=== PATIENT | female | born 1990 | race Caucasian/White ===

== ENCOUNTER → 2018-05-21 08:13 | Outpatient (CLI) | payer MEDICAID ==
[~2018-05-21 08:13] MED LIST: PRENATAL COMPLE1 TAB PO
[2018-05-26 10:15] VITALS: BMI 28.6
== END | disposition home or self-care (01) ==
LOC: D.LDO 08:13
DX: O48.0 Post-term pregnancy (principal); Z3A.40 40 weeks gestation of pregnancy

== ENCOUNTER → 2018-05-25 15:15 | Outpatient (CLI) | payer MEDICAID ==
[2018-05-26 10:15] VITALS: BMI 28.6
== END | disposition home or self-care (01) ==
LOC: D.LDO 15:15
DX: O48.0 Post-term pregnancy (principal); Z3A.40 40 weeks gestation of pregnancy

== ENCOUNTER 2018-05-26 05:07 | Inpatient (IN) | payer MEDICAID ==
[2018-05-26] VITALS (11 sets, daily range): BP systolic 96–128; BP diastolic 51–73; Ht 156.2 cm; Wt 69.9 kg
[~2018-05-26] VITALS: Ht 156.2 cm; Wt 69.9 kg
--- NOTE | ~2018-05-26 | OP ---
PATIENT NAME: MCKENZIE MATSON MEDICAL RECORD: [id number] :89 [id number] ADMISSION DATE:05/26/18 SURGEON: RUEL ROWE MD DATE OF OPERATION: 05/26/2018 PREOPERATIVE DIAGNOSES: 1. Term intrauterine . 2. Induction of labor. 3. intolerance to labor. POSTOPERATIVE DIAGNOSES: 1. Term intrauterine . 2. Induction of labor. 3. intolerance to labor. PROCEDURE: Primary low transverse section. SURGEON: Ruel Rowe MD ESTIMATED BLOOD LOSS: 1000 cc. ANESTHESIA: Regional via spinal. FINDINGS: 1. Viable male , Apgars 9 at 1 and 9 at 5. 2. Placenta delivered manually intact, 3-vessel cord noted. 3. Grossly normal adnexa noted bilaterally. SPECIMENS: Placenta and cord for gases. INTRAVENOUS FLUIDS: Per anesthesia record. ESTIMATED BLOOD LOSS: 1000 cc. COMPLICATIONS: None apparent. DESCRIPTION OF THE PROCEDURE: The patient was taken to the operating room where regional anesthesia was achieved without difficulty. The patient had been prepped and draped in normal sterile fashion in the dorsal supine position. SCDs were on and functioning appropriately. Ahumada catheter had been placed and was draining freely. At this point, a Pfannenstiel skin incision was made, extended downward to the underlying subcutaneous fat to level of the fascia. The fascia was then excised in the midline and extended bilaterally using the Prince scissors. The superior and inferior aspect of the fascial incision were then tented upward and sharply dissected from the underlying rectus muscle using the Bovie cautery and the Prince scissors. Rectus muscles were then bluntly in midline, peritoneum identified, and entered at the superior aspect of the incision using the Metzenbaum scissors. Peritoneal incision was then extended using the Metzenbaum scissors and a bladder blade placed into the pelvis. At this point, a bladder flap was created by excising the anterior leaf of the broad ligament across the lower uterine segment. The bladder blade was placed and a low transverse incision was made and extended using the Pelosi method. 's head was delivered atraumatically followed by the body. Infant was bulb suctioned upon delivery. OPERATIVE REPORT [id number] MCKENZIE MATSON Cord was clamped times 2, cut, and the infant was handed to awaiting nursery team. Cord was obtained for gases and the placenta was removed manually intact, 3-vessel cord was noted. At this point, the uterus exteriorized, cleared of all clots and debris and vigorously massaged. A good uterine tone was noted. Uterine incision was repaired with 0 Vicryl in a running locked fashion times 2. The posterior cul-de-sac was then thoroughly irrigated and the uterus was replaced into the pelvis. Good hemostasis was again noted in the anterior cul-de-sac at the uterine incision. Counts were correct times 2 for laps, instruments, and needles. Fascia was repaired with 0 loop PDS and the skin repaired with andrew. The patient tolerated procedure well and was transferred to postanesthesia recovery stable without incident. TRANSINT:[id number] Voice Confirmation ID: [id number] DOCUMENT ID: [id number] RUEL ROWE MD at 1304 CC: [id number] DICTATION DATE: 06/27/18 0640 INTERNATIONAL TAX MANAGER: 06/27/18 0956 DIS IN 05/28/18 [facility] [address] [place] [address]
--- NOTE | ~2018-05-26 | DS ---
PATIENT:MCKENZIE MATSON :89 MEDICAL RECORD: [id number] DISCHARGE SUMMARY ADMISSION DATE: 05/26/18 DISCHARGE DATE: 05/28/18 HOSPITAL COURSE: The patient was admitted on 05/26/2018. A 27-year-old at 40 weeks and 5 days, admitted for induction of labor. The patient was noted to be O positive, group B strep unknown, rubella immune. PAST MEDICAL HISTORY: Significant for being a smoker and depression. PAST SURGICAL HISTORY: The patient denies any past surgical history. ALLERGIES: THE PATIENT REPORTS ALLERGY TO PENICILLIN. MEDICATIONS: Included vitamin. FAMILY HISTORY: The patient reported a family history significant for a parent with cancer and a sibling with cardiovascular disease. SOCIAL HISTORY: The patient reported social history negative times 3. PHYSICAL EXAMINATION: VITAL SIGNS: On initial assessment, vital signs were stable. The patient was afebrile and normotensive. LUNGS: Clear to auscultation. CARDIOVASCULAR: Regular rate and rhythm. PELVIC: Uterus was appropriately sized and nontender. EXTREMITIES: Lower extremities were free of erythema, swelling or Homans sign. wellbeing was reassuring with a category 1 tracing at admission. LABORATORY DATA: Admit hemoglobin was found to be 11.5 with a platelet count of 151. ASSESSMENT AND PLAN AT ADMISSION: 1. Term intrauterine at 40 weeks and 5 days. 2. Induction of labor. 3. Group B strep unknown. 4. History of ultrasound with echogenic intracardiac focus. During the induction of labor with Pitocin, the fetus was having recurrent late decelerations. I discussed with the patient the physiology of uteroplacental insufficiency. The patient agreed to proceed with section. Operative report is as dictated. The patient did well overnight on postop day #0, tolerating clear liquids. The patient with a Dilaudid MALLET AND DIE CUTTER and IV Toradol for pain. Lower extremities were free of Homans sign. SCDs are on and functioning appropriately. The patient had a Ahumada catheter overnight, which was draining freely with adequate urine output. The patient did well on the morning of postop day #1, vital signs remained stable. The patient was afebrile. Hemoglobin was found to be stable. Uterus was infraumbilical and appropriately tender. Incision was clean, dry and intact. At that time, the patient was advanced to general diet and p.o. pain meds, ambulation and Ahumada was discontinued. The patient continued to do well overnight on postop day #1. On the morning of postop day #2, the patient remained afebrile and normotensive. Hemoglobin was stable. Uterus was infraumbilical and appropriately tender. The DISCHARGE SUMMARY REPORT [id number] MCKENZIE MATSON patient was tolerating general diet and p.o. pain meds. The patient was given instructions to follow up for staple removal the following week. TRANSINT:[id number] Voice Confirmation ID: [id number] DOCUMENT ID: [id number] JORDAN MATHEWS MD at 1304 CC: [id number] DICTATION DATE: 06/27/18 0643 STRAIGHT TRUCK DRIVER: 06/27/18 1645 DIS IN 05/28/18 [facility] [id number] [place] [address]
[2018-05-26] MEDS ORDERED: PRENATAL COMPLE1 TAB PO (05:43)
[2018-05-26 05:54] LABS: HEMATOCRIT 33.7 % (36.0-48.0); HEMOGLOBIN 11.5 g/dL (12-16); MCHC 34.1 g/dL (31.0-37.0); MCV 96.6 fL (80.0-100.0); MEAN PLATELET VOLUME 12.4 fL (7.4-10.4); RBC 3.49 10x6/uL (4.00-5.40); WBC 10.9 10x3/uL (4.8-10.8)
[2018-05-26 07:03] LABS: APPEARANCE HAZY (CLEAR); BILIRUBIN NEGATIVE (NEGATIVE); COLOR YELLOW (YELLOW); GLUCOSE NEGATIVE (NEGATIVE); KETONE NEGATIVE (NEGATIVE); NITRITE NEGATIVE (NEGATIVE); PROTEIN NEGATIVE (NEGATIVE); UROBILINOGEN NORMAL (NORMAL)
[2018-05-26 07:05] LABS: BACTERIA MODERATE /hpf (NONE SEEN); EPITHELIAL CELLS 0-5 /hpf (0-5)
[2018-05-26 07:06] LABS: MUCUS <1+ /lpf (NONE SEEN); RED CELLS - URINE 0-5 /hpf (0-5)
[2018-05-26 17:36] LABS: BASOPHILS 0.1 % (0-2); EOSINOPHILS 0.5 % (0-7); HEMATOCRIT 29.3 % (36.0-48.0); HEMOGLOBIN 9.9 g/dL (12-16); IMMATURE GRANULOCYTES 1.6 % (0-5); LYMPHOCYTES 11.3 % (15-50); MCHC 33.8 g/dL (31.0-37.0); MCV 97.7 fL (80.0-100.0); MONOCYTES 7.9 % (2-11); NEUTROPHILS 78.6 % (40-80); PLATELET COUNT 134 10x3/uL (130-400)
[2018-05-26 18:18] LABS: WBC 14.1 10x3/uL (4.8-10.8)
[2018-05-27 03:51] VITALS: BP 108/66
[2018-05-27 06:15] LABS: RAPID PLASMA REAGIN Non Reactive (Non Reactive)
[2018-05-27 06:44] LABS: BASOPHILS 0.1 % (0-2); EOSINOPHILS 1.6 % (0-7); HEMOGLOBIN 9.8 g/dL (12-16); IMMATURE GRANULOCYTES 1.5 % (0-5); LYMPHOCYTES 14.2 % (15-50); MCH 32.8 pg (26.0-34.0); MCHC 33.8 g/dL (31.0-37.0); MEAN PLATELET VOLUME 11.7 fL (7.4-10.4); MONOCYTES 7.3 % (2-11); NEUTROPHILS 75.3 % (40-80); PLATELET COUNT 115 10x3/uL (130-400); RBC 2.99 10x6/uL (4.00-5.40); RDW 13.1 % (11.5-14.5)
[2018-05-27 06:50] LABS: WBC 9.9 10x3/uL (4.8-10.8)
[2018-05-27 07:22] VITALS: BP 108/61
[2018-05-27 13:22] VITALS: BP 100/52
[2018-05-27 21:53] VITALS: BP 130/63
[2018-05-28 07:31] VITALS: BP 120/67
== END 2018-05-28 12:32 | disposition home or self-care (01) | DRG 766 ==
LOC: D.LD 05:07
PROVIDERS: Obstetrics & Gynecology
PROC: 10D00Z1 Extraction of Products of Conception, Low, Open Approach (ICD-10-PCS; principal; 2018-05-26 10:30)
DX: O99.334 Smoking (tobacco) complicating childbirth (principal); Z3A.40 40 weeks gestation of pregnancy; Z37.0 Single live birth; O76 Abnormality in fetal heart rate and rhythm complicating labor and delivery; O35.8XX0 Maternal care for other (suspected) fetal abnormality and damage, not applicable or unspecified

== ENCOUNTER → 2019-12-15 12:03 | Outpatient (CLI) | payer MEDICAID ==
[2018-05-26 10:15] VITALS: BMI 28.6
[2019-12-15 12:44] LABS: BASOPHILS 0.3 % (0-2); HEMATOCRIT 28.9 % (36.0-48.0); HEMOGLOBIN 9.3 g/dL (12-16); IMMATURE GRANULOCYTES 5.1 % (0-5); MCH 30.1 pg (26.0-34.0); MCHC 32.2 g/dL (31.0-37.0); MCV 93.5 fL (80.0-100.0); MEAN PLATELET VOLUME 11.6 fL (7.4-10.4); MONOCYTES 7.4 % (2-11); NEUTROPHILS 70.2 % (40-80); RBC 3.09 10x6/uL (4.00-5.40); RDW 13.4 % (11.5-14.5); WBC 9.2 10x3/uL (4.8-10.8)
[2019-12-15 12:48] LABS: PLATELET COUNT 156 10x3/uL (130-400)
[2019-12-15 12:52] LABS: CALC OSMOLALITY 272 mosm/kg (275-300); CALCIUM 7.6 mg/dL (8.5-10.1); CARBON DIOXIDE 22.9 mmol/L (21.0-32.0); CHLORIDE - SERUM 107 mmol/L (98-107); CREATININE - SERUM 0.6 mg/dL (0.6-1.3); GLUCOSE 85 mg/dL (74-106); POTASSIUM - SERUM 3.9 mmol/L (3.5-5.1); SODIUM 138 mmol/L (136-145); UREA NITROGEN 6 mg/dL (7-18); eGFR NON AFRICAN AMERICAN > 90 mL/min (90-120)
[2019-12-15 14:24] LABS: AMYLASE - SERUM 36 U/L (25-115); LIPASE 82 U/L (73-393)
== END | disposition home or self-care (01) ==
LOC: D.LDO 12:03
PROVIDERS: Obstetrics & Gynecology; ATTEND Student in an Organized Health Care Education/Training Program
DX: O26.899 Other specified pregnancy related conditions, unspecified trimester (principal); M54.9 Dorsalgia, unspecified

== ENCOUNTER 2021-05-23 12:10 | Emergency (ER) | payer MEDICAID ==
[~2021-05-23] VITALS: Ht 156.2 cm; Wt 54.5 kg
[~2021-05-23 12:10] MED LIST changes: +MOTRIN600 MG PO; +PERCOCET 10-321 EAC1 PO
[2021-05-23 12:15] VITALS: Ht 156.2 cm; Wt 54.5 kg
[2021-05-23 12:49] LABS: CALC OSMOLALITY 266 mosm/kg (275-300); CALCIUM 8.5 mg/dL (8.5-10.1); CHLORIDE - SERUM 101 mmol/L (98-107); CREATININE - SERUM 0.8 mg/dL (0.6-1.3); GLUCOSE 101 mg/dL (74-106); POTASSIUM - SERUM 3.3 mmol/L (3.5-5.1); SODIUM 135 mmol/L (136-145); UREA NITROGEN 5 mg/dL (7-18); eGFR NON AFRICAN AMERICAN 90 mL/min (90-120)
[2021-05-23 12:50] LABS: BASOPHILS 0.4 % (0-2); EOSINOPHILS 0.1 % (0-7); HEMATOCRIT 41.6 % (36.0-48.0); HEMOGLOBIN 13.9 g/dL (12-16); LYMPHOCYTES 5.7 % (15-50); MCH 34.3 pg (26.0-34.0); MCHC 33.5 g/dL (31.0-37.0); MCV 102.3 fL (80.0-100.0); MEAN PLATELET VOLUME 10.2 fL (7.4-10.4); MONOCYTES 8.1 % (2-11); NEUTROPHILS 85.7 % (40-80); PLATELET COUNT 166 10x3/uL (130-400); RBC 4.06 10x6/uL (4.00-5.40); RDW 17.1 % (11.5-14.5)
[2021-05-23 12:55] LABS: ALBUMIN 3.3 g/dL (3.4-5.0); ALKALINE PHOSPHATASE 95 U/L (30-120); ALT (SGPT) 46 U/L (10-68); BILIRUBIN - TOTAL 2.69 mg/dL (0.2-1.3); PROTEIN - SERUM 7.1 g/dL (6.4-8.2)
[2021-05-23 12:56] LABS: LIPASE 24 U/L (73-393)
[2021-05-23 13:36] LABS: BACTERIA MOD HPF (<MOD); BILIRUBIN NEGATIVE (NEGATIVE); KETONE NEGATIVE mg/dL (< 1+); NITRITE POSITIVE (NEGATIVE); SQUAMOUS EPITHELIAL 9 HPF (0-4); UROBILINOGEN NORMAL mg/dL (< 2); WHITE CELLS - URINE 103 HPF (0-4)
[2021-05-23 13:38] LABS: HCG URINE NEGATIVE (NEGATIVE)
[2021-05-23] MEDS ORDERED: FLAGYL500 MG PO (15:52)
[2021-05-23] MEDS ORDERED: ZOFRAN ODT4 MG/UDTAB PO (15:52)
[2021-05-23] MEDS ORDERED: ULTRAM50 MG PO (15:52)
[2021-05-23] MEDS ORDERED: CIPRO500 MG PO (15:52)
[2021-05-23 16:51] VITALS: BP 127/74
== END 2021-05-23 16:51 | disposition home or self-care (01) ==
LOC: D.ER 12:10
PROVIDERS: Family Medicine
DX: K52.9 Noninfective gastroenteritis and colitis, unspecified (principal); N63.0 Unspecified lump in unspecified breast; R11.2 Nausea with vomiting, unspecified; R10.30 Lower abdominal pain, unspecified